=== PATIENT | male | born 1990 | race Hispanic/Latino ===

== ENCOUNTER 2017-08-14 03:31 | Emergency (ER) | payer SELFPAY ==
[2017-08-14] MEDS ORDERED: Ondansetron HCl/PF 4 MG/2 ML Vial ONE (03:40)
[2017-08-14 04:13] LABS: #Basophils 0.1 thou/uL (0.0-0.2); #Eosinphils 0.4 thou/uL (0.0-0.7); #Lymphocytes 3.7 thou/uL (1.20-3.40); #Neutrophils 10.7 thou/uL (1.40-6.50); %Basophils 0.7 % (0.0-1.0); %Eosinophils 2.6 % (0.0-10.0); %Lymphocytes 23.2 % (21.0-51.0); %Monocytes 6.1 % (0.0-10.0); %Neutrophils 67.4 % (42.0-75.0); Mean Corpuscular HGB CONC 33.3 g/dL (32.0-36.0); Mean Corpuscular Hemoglobin 27.6 pg (27.0-31.0); Mean Platelet Volume 7.6 fL (7.4-10.4); Platelet Count 351 thou/uL (130-400); RBC Distribution Width 12.5 % (11.5-14.5); Red Blood Cell (RBC) Count 5.42 mill/uL (4.70-6.10); White Blood Cell (WBC) Count 15.9 thou/uL (4.8-10.8)
[2017-08-14 04:34] LABS: ALT (SGPT) 30 U/L (8-55); AST (SGOT) 18 U/L (5-34); Albumin 4.5 g/dL (3.5-5.0); Alkaline Phosphatase 78 U/L (40-150); Anion Gap 16 mmol/L (10-20); BUN (Urea Nitrogen) 12 mg/dL (8.9-20.6); Bilirubin, Total 0.2 mg/dL (0.2-1.2); Calc. Creatinine Clearance 0 mL/min (70-130); Calcium 9.6 mg/dL (7.8-10.44); Carbon Dioxide 23 mmol/L (22-29); Chloride 105 mmol/L (98-107); Estimated GFR-MDRD Greater than 90; Globulin 3.4 g/dL (2.4-3.5); Glucose 124 mg/dL (70-105); Lipase 19 U/L (8-78); Potassium 3.8 mmol/L (3.5-5.1); Protein, Total 7.9 g/dL (6.0-8.3); Sodium 140 mmol/L (136-145)
[2017-08-14 04:44] LABS: Anion Gap 15 mmol/L (10-20); BUN (Urea Nitrogen) 11 mg/dL (8.9-20.6); Calc. Creatinine Clearance 0 mL/min (70-130); Calcium 9.7 mg/dL (7.8-10.44); Carbon Dioxide 24 mmol/L (22-29); Chloride 105 mmol/L (98-107); Estimated GFR-MDRD Greater than 90; Glucose 122 mg/dL (70-105); Potassium 3.7 mmol/L (3.5-5.1); Sodium 140 mmol/L (136-145)
[2017-08-14] MEDS ORDERED: Pantoprazole 40 MG VIAL ONE (04:55)
[2017-08-14] MEDS ORDERED: Morphine 4 MG/ML VIAL ONE (04:55)
--- NOTE | 2017-08-14 07:52 | ULT ---
PRELIMINARY REPORT/[facility]/EMERGENCY AFTER HOURS PROCEDURE: EXAM: US Abdomen Limited, Right Upper Quadrant CLINICAL HISTORY: 27 years old, male; Pain; Other: Upper abd TECHNIQUE: Real-time ultrasound of the right upper quadrant with image documentation. COMPARISON: No relevant prior studies available. FINDINGS: Liver: The liver is heterogeneous in echogenicity, probably from fatty infiltration. No intrahepatic bile duct dilation. Gallbladder: There are gallstones with possible sludge. No gallbladder wall thickening. Based on ultr asound technologist report, there is positive Madrigal's sign. Common bile duct: The common bile duct measures 0.55 cm. No stones. No dilation. Pancreas: Unremarkable as visualized. Right kidney: The right kidney measures 12.1 x 4.7 x 5cm. There is 1.3 x 1 cm right renal cyst. There are 2 subcentimeter right renal stones measuring up to 0.8 cm No hydronephrosis. IMPRESSION: Gallbladder stones with possible sludge and positive sonographic Madrigal sign concerning for cholecyst itis. Subcentimeter right renal stones. No hydronephrosis. Thank you for allowing us to participate in the care of your patient. Dictated and Authenticated by: Chelsie Alanis DO 08/14/2017 5:51 AM Central Time ([place] & [place]) FINAL INTERPRETATION RIGHT UPPER QUADRANT ULTRASOUND: 08/14/2017 HISTORY: Right upper quadrant pain. COMPARISON: None. FINDINGS: I agree with the preliminary [facility] report, dictated by Dr. Chelsie Alanis. The imaged pancreas is unremarkable. Increased echogenicity of the hepatic parenchyma noted, which m ay signify steatosis. There is cholelithiasis with gallbladder sludge. The adult remedial education instructor reports a po sitive Madrigal sign. No gallbladder wall thickening or pericholecystic fluid. The common bile duct measures 5-6 mm, upper limits of normal. The right kidney measures 12 cm in craniocaudal dimension and demonstrates a probable 1 x 1.3 cm cyst . There are echogenic foci within the right kidney, measuring up to 8 mm, suggesting nonobstructing stones. IMPRESSION: 1. Cholelithiasis with positive Madrigal sign, suspicious for acute cholecystitis in the proper clinic al setting. 2. Findings suggesting nonobstructing right renal calculi. POS: [facility]
== END 2017-08-14 06:05 | disposition home or self-care (01) ==
LOC: ERS 03:31
DX: K29.20 Alcoholic gastritis without bleeding (principal); K80.80 Other cholelithiasis without obstruction
CPT/HCPCS: 76705; 80053; 82150; 83690; 85025; 96361; 96374; 96375; C9113; J2270; J2405

== ENCOUNTER 2021-03-17 15:03 | Inpatient (IN) | payer SELFPAY ==
[~2021-03-17 15:03] MED LIST: Iopamidol-370 76% 500 ML 1 ML ONE
[2021-03-17 16:54] LABS: #Basophils 0.1 thou/uL (0.0-0.2); #Lymphocytes 1.8 thou/uL (1.20-3.40); #Monocytes 0.9 thou/uL (0.11-0.59); #Neutrophils 11.1 thou/uL (1.40-6.50); %Basophils 0.4 % (0.0-1.0); %Eosinophils 0.1 % (0.0-10.0); %Monocytes 6.6 % (0.0-10.0); %Neutrophils 79.8 % (42.0-75.0); Hemoglobin 16.3 g/dL (14.0-18.0); Mean Corpuscular HGB CONC 33.3 g/dL (32.0-36.0); Mean Corpuscular Hemoglobin 27.2 pg (27.0-31.0); Mean Corpuscular Volume 81.7 fL (78.0-98.0); Mean Platelet Volume 8.4 fL (7.4-10.4); Platelet Count 324 thou/uL (130-400); RBC Distribution Width 13.4 % (11.5-14.5); Red Blood Cell (RBC) Count 5.99 mill/uL (4.70-6.10); White Blood Cell (WBC) Count 13.9 thou/uL (4.8-10.8)
[2021-03-17] MEDS ORDERED: Ondansetron PF 4 MG/2 ML Vial ONE (16:57)
[2021-03-17] MEDS ORDERED: Morphine 4 MG/ML VIAL ONE (16:57)
[2021-03-17 17:16] LABS: ALT (SGPT) 21 U/L (8-55); AST (SGOT) 16 U/L (5-34); Albumin 5.1 g/dL (3.5-5.0); Alkaline Phosphatase 93 U/L (40-110); Anion Gap 16 mmol/L (10-20); BUN (Urea Nitrogen) 14 mg/dL (8.9-20.6); Bilirubin, Total 0.6 mg/dL (0.2-1.2); Calc. Creatinine Clearance 0 mL/min (70-130); Calcium 9.8 mg/dL (7.8-10.44); Carbon Dioxide 27 mmol/L (22-29); Chloride 102 mmol/L (98-107); Globulin 3.8 g/dL (2.4-3.5); Glucose 111 mg/dL (70-105); Lipase 8 U/L (8-78); Potassium 3.6 mmol/L (3.5-5.1); Protein, Total 8.9 g/dL (6.0-8.3); Sodium 141 mmol/L (136-145)
[2021-03-17 17:57] LABS: Bilirubin Negative (Negative); Blood, Urine Negative (Negative); Clarity Turbid (Clear); Glucose, Urine (Dipstick) Normal (Negative); Ketone, Urine Negative (Negative); Leukocyte Negative Leu/uL (Negative); Nitrite Negative (Negative); Protein, Urine (Dipstick) Negative (Neg-Trace); Specific Gravity, Urine 1.019 (1.002-1.036); Urobilinogen Normal mg/dL (Less than 2); pH, Urine 6.5 (5.0-9.0)
[2021-03-17] MEDS ORDERED: Piperacillin/Tazobactam 4.5 GM VIAL ONE (18:48)
[2021-03-17 20:06] LABS: Lactic Acid 2.1 mmol/L (0.5-2.2)
[2021-03-17] MEDS ORDERED: Acetaminophen 650 MG Suppository PR PRN (20:09)
[2021-03-17] MEDS ORDERED: Ondansetron PF 4 MG/2 ML Vial IVP PRN (20:09)
[2021-03-17] MEDS ORDERED: Ondansetron ODT 4 MG TAB PO PRN (20:09)
[2021-03-17] MEDS ORDERED: Sodium Chloride 0.9% 1,000 ML IV SCH (20:15)
[2021-03-17] MEDS ORDERED: Morphine 2 MG/ML VIAL SLOW IVP PRN (20:57)
[2021-03-17] MEDS ORDERED: Morphine 4 MG/ML VIAL SLOW IVP PRN (20:57)
[2021-03-17] MEDS ORDERED: Sodium Chloride 0.9% 500 ML IV SCH (21:00)
[2021-03-17 21:18] VITALS: BMI 30.9
[2021-03-17] MEDS: Sodium Chloride 0.9% 1,000 ML IV SCH (21:42)
[2021-03-17] MEDS ORDERED: Chloraseptic Spray 180 ml Bottle PO PRN (22:15)
[2021-03-17] MEDS: Piperacillin/Tazobactam 3.375 GM in Sodium Chloride 0.9% 100 ML IVPB SCH (22:35)
[2021-03-18] MEDS ORDERED: Morphine 4 MG/ML VIAL SLOW IVP PRN (04:43)
[2021-03-18] MEDS: Sodium Chloride 0.9% 1,000 ML IV SCH ×2 (04:47→18:53)
[2021-03-18] MEDS: Piperacillin/Tazobactam 3.375 GM in Sodium Chloride 0.9% 100 ML IVPB SCH ×3 (05:43→21:33)
[2021-03-18 05:52] LABS: SARS-CoV-2 NAA Rapid Test Not Detected (NotDetected)
[2021-03-18 06:28] LABS: #Monocytes 0.9 thou/uL (0.11-0.59); #Neutrophils 8.7 thou/uL (1.40-6.50); %Basophils 0.4 % (0.0-1.0); %Eosinophils 0.3 % (0.0-10.0); %Lymphocytes 17.2 % (21.0-51.0); %Monocytes 7.6 % (0.0-10.0); %Neutrophils 74.5 % (42.0-75.0); Mean Corpuscular HGB CONC 33.2 g/dL (32.0-36.0); Mean Corpuscular Hemoglobin 27.5 pg (27.0-31.0); Mean Corpuscular Volume 82.7 fL (78.0-98.0); Mean Platelet Volume 8.3 fL (7.4-10.4); Platelet Count 271 thou/uL (130-400); RBC Distribution Width 13.4 % (11.5-14.5); White Blood Cell (WBC) Count 11.7 thou/uL (4.8-10.8)
[2021-03-18 06:41] LABS: Anion Gap 14 mmol/L (10-20); BUN (Urea Nitrogen) 11 mg/dL (8.9-20.6); Calc. Creatinine Clearance 163 mL/min (70-130); Calcium 8.8 mg/dL (7.8-10.44); Carbon Dioxide 23 mmol/L (22-29); Chloride 108 mmol/L (98-107); Glucose 117 mg/dL (70-105); Potassium 4.1 mmol/L (3.5-5.1); Sodium 141 mmol/L (136-145)
[2021-03-18] MEDS ORDERED: Fleet Enema 133 ML BOT PR SCH (08:00)
[2021-03-18] MEDS ORDERED: Dexmedetomidine 200 MCG/2 ML VIAL ONE (09:57)
[2021-03-18] MEDS ORDERED: Succinylcholine 200 MG/10 ml SYRINGE FS ONE ×2 (10:11→13:54)
[2021-03-18] MEDS ORDERED: PROPOFOL 200 MG/20 ML VIAL ONE ×2 (10:11→13:54)
[2021-03-18] MEDS ORDERED: Fentanyl 250 MCG/5 ML VIAL ONE (13:11)
[2021-03-18] MEDS ORDERED: Lidocaine 1% w/Epinephrine 1:100K 20 ML VIAL ONE (13:30)
[2021-03-18] MEDS ORDERED: Bupivacaine PF 0.5% 30 ML VIAL ONE (13:30)
[2021-03-18] MEDS ORDERED: Glycopyrrolate 0.2 MG/ML 5 ML SYRINGE ONE (13:54)
[2021-03-18] MEDS ORDERED: Rocuronium Bromide 10 MG/ML (10ML VIAL) ONE (13:54)
[2021-03-18] MEDS ORDERED: Dexamethasone 20 MG/5 ML VIAL ONE (13:54)
[2021-03-18] MEDS ORDERED: Ondansetron PF 4 MG/2 ML Vial ONE (13:54)
[2021-03-18] MEDS ORDERED: Lidocaine 1% PF 5 ML VIAL ONE (13:54)
[2021-03-18] MEDS ORDERED: Labetalol HCl 100 MG/20 ML VIAL ONE (13:54)
[2021-03-18] MEDS ORDERED: HYDROmorphone 0.5 MG/0.5 ML SYRINGE ONE (15:06)
[2021-03-18] MEDS ORDERED: Promethazine HCl 25 MG/ML VIAL IM PRN ×3 (15:39→15:51)
[2021-03-18] MEDS ORDERED: hydrALAZINE 20 MG/ML VIAL SLOW IVP PRN (15:39)
[2021-03-18] MEDS ORDERED: hydrALAZINE 20 MG/ML VIAL ONE (15:39)
[2021-03-18] MEDS ORDERED: Ondansetron PF 4 MG/2 ML Vial IVP PRN ×2 (15:39→15:51)
[2021-03-18] MEDS ORDERED: Fentanyl 100 MCG/2 ML VIAL ONE (15:41)
[2021-03-18] MEDS ORDERED: Promethazine HCl 25 MG/ML VIAL IVPB PRN (15:50)
[2021-03-18] MEDS ORDERED: Ondansetron HCl/PF 4 MG/2 ML Vial IVP PRN (15:50)
[2021-03-18] MEDS ORDERED: Meperidine HCl/PF 25 MG/ML VIAL SLOW IVP PRN (15:50)
[2021-03-18] MEDS ORDERED: Morphine Sulfate 2 MG/ML SYRINGE SLOW IVP PRN (15:50)
[2021-03-18] MEDS ORDERED: PACU-Morphine 4MG/ML VIAL SLOW IVP PRN (15:50)
[2021-03-18] MEDS ORDERED: Ketorolac Tromethamine 30 MG/ML VIAL IVP PRN (15:50)
[2021-03-18] MEDS ORDERED: Naloxone HCl 0.4 mg/ml Vial IV PRN (15:51)
[2021-03-18] MEDS ORDERED: Zolpidem Tartrate 5 MG TAB PO PRN (15:51)
[2021-03-18] MEDS ORDERED: diphenhydrAMINE 50 MG/ML VIAL IVP PRN (15:51)
[2021-03-18] MEDS ORDERED: diphenhydrAMINE 50 MG/ML VIAL IM PRN (15:51)
[2021-03-18] MEDS ORDERED: diphenhydrAMINE 25 MG CAP PO PRN (15:51)
[2021-03-18] MEDS ORDERED: Communication Order-Pharmacy FS SCH (16:00)
[2021-03-18] MEDS ORDERED: HYDROmorphone 2 MG/ML VIAL ONE (16:03)
[2021-03-18] MEDS ORDERED: Ketorolac Tromethamine 30 MG/ML VIAL ONE (16:17)
[2021-03-18] MEDS: Ketorolac Tromethamine 30 MG/ML VIAL IVP SCH ×2 (17:29→23:59)
[2021-03-18] MEDS: cefOXitin Sodium/Dextrose,Iso 2 GM in Premix Bag 1 BAG IVPB SCH (19:37)
[2021-03-18] MEDS: Famotidine/PF 20 mg/2ml Vial SLOW IVP SCH (21:33)
[2021-03-18] MEDS: Famotidine 20 MG TAB PO SCH (21:57)
[2021-03-19] MEDS: Sodium Chloride 0.9% 1,000 ML IV SCH ×3 (01:10→16:52)
[2021-03-19] MEDS: cefOXitin Sodium/Dextrose,Iso 2 GM in Premix Bag 1 BAG IVPB SCH (01:10)
[2021-03-19] MEDS: Ketorolac Tromethamine 30 MG/ML VIAL IVP SCH ×4 (06:10→23:15)
[2021-03-19] MEDS: Piperacillin/Tazobactam 3.375 GM in Sodium Chloride 0.9% 100 ML IVPB SCH ×3 (06:11→21:13)
[2021-03-19 06:22] LABS: Anion Gap 13 mmol/L (10-20); BUN (Urea Nitrogen) 15 mg/dL (8.9-20.6); Calc. Creatinine Clearance 148 mL/min (70-130); Calcium 8.6 mg/dL (7.8-10.44); Carbon Dioxide 25 mmol/L (22-29); Chloride 105 mmol/L (98-107); Glucose 115 mg/dL (70-105); Potassium 4.3 mmol/L (3.5-5.1); Sodium 139 mmol/L (136-145)
[2021-03-19 06:26] LABS: Band 1 % (5-11); Hypochromia SLIGHT = 6-15 cells (100X) (0-5/hpf); Lymphocytes 22 % (21-51); MDiff Complete? YES; Mean Corpuscular HGB CONC 31.5 g/dL (32.0-36.0); Mean Corpuscular Hemoglobin 26.5 pg (27.0-31.0); Mean Corpuscular Volume 83.9 fL (78.0-98.0); Mean Platelet Volume 7.9 fL (7.4-10.4); Monocytes 17 % (0-10); Neutrophil 60 % (42-75); Platelet Count 278 thou/uL (130-400); Platelet Morphology Comment Appears Adequate; RBC Distribution Width 13.4 % (11.5-14.5); Red Blood Cell (RBC) Count 4.55 mill/uL (4.70-6.10); White Blood Cell (WBC) Count 12.1 thou/uL (4.8-10.8)
[2021-03-19] MEDS: HYDROmorphone 10 mg/100 ml CADD IVPB PRN (07:42)
[2021-03-19] MEDS: Famotidine/PF 20 mg/2ml Vial SLOW IVP SCH ×2 (09:06→21:13)
[2021-03-19] MEDS: Famotidine 20 MG TAB PO SCH ×2 (09:07→21:22)
[2021-03-19] MEDS: Enoxaparin Sodium 40 MG/0.4 ML SYRINGE SC SCH (09:11)
[2021-03-20] MEDS: HYDROmorphone 10 mg/100 ml CADD IVPB PRN (03:32)
[2021-03-20] MEDS: Sodium Chloride 0.9% 1,000 ML IV SCH ×3 (03:33→18:32)
[2021-03-20] MEDS: Ketorolac Tromethamine 30 MG/ML VIAL IVP SCH ×4 (05:30→23:42)
[2021-03-20] MEDS: Piperacillin/Tazobactam 3.375 GM in Sodium Chloride 0.9% 100 ML IVPB SCH (05:30)
[2021-03-20] MEDS: Famotidine/PF 20 mg/2ml Vial SLOW IVP SCH ×2 (08:54→21:02)
[2021-03-20] MEDS: Famotidine 20 MG TAB PO SCH ×2 (08:55→21:10)
[2021-03-20] MEDS ORDERED: FLU VACC QS2021-22(6MOS UP)/PF 60 MCG/0.5 ML SYRINGE IM ONE (09:00)
[2021-03-20] MEDS ORDERED: Enoxaparin Sodium 40 MG/0.4 ML SYRINGE ONE (11:16)
[2021-03-20] MEDS: Enoxaparin Sodium 40 MG/0.4 ML SYRINGE SC SCH (13:10)
[2021-03-21] MEDS: Sodium Chloride 0.9% 1,000 ML IV SCH ×2 (03:08→11:50)
[2021-03-21 06:42] LABS: #Basophils 0.1 thou/uL (0.0-0.2); #Eosinphils 0.4 thou/uL (0.0-0.7); #Lymphocytes 2.1 thou/uL (1.20-3.40); #Monocytes 0.8 thou/uL (0.11-0.59); #Neutrophils 4.8 thou/uL (1.40-6.50); %Basophils 0.7 % (0.0-1.0); %Eosinophils 4.7 % (0.0-10.0); %Lymphocytes 25.2 % (21.0-51.0); %Monocytes 9.9 % (0.0-10.0); %Neutrophils 59.5 % (42.0-75.0); Hemoglobin 6.5 g/dL (14.0-18.0); Mean Corpuscular Hemoglobin 28.3 pg (27.0-31.0); Mean Corpuscular Volume 83.4 fL (78.0-98.0); Mean Platelet Volume 8.2 fL (7.4-10.4); Platelet Count 188 thou/uL (130-400); RBC Distribution Width 13.3 % (11.5-14.5); Red Blood Cell (RBC) Count 2.29 mill/uL (4.70-6.10); White Blood Cell (WBC) Count 8.1 thou/uL (4.8-10.8)
[2021-03-21 07:08] LABS: ALT (SGPT) 24 U/L (8-55); AST (SGOT) 15 U/L (5-34); Albumin 3.2 g/dL (3.5-5.0); Alkaline Phosphatase 44 U/L (40-110); Anion Gap 12 mmol/L (10-20); BUN (Urea Nitrogen) 9 mg/dL (8.9-20.6); Bilirubin, Total 0.6 mg/dL (0.2-1.2); Calc. Creatinine Clearance 213 mL/min (70-130); Carbon Dioxide 25 mmol/L (22-29); Chloride 104 mmol/L (98-107); Globulin 1.9 g/dL (2.4-3.5); Glucose 91 mg/dL (70-105); Magnesium 1.9 mg/dL (1.6-2.6); Potassium 3.7 mmol/L (3.5-5.1); Protein, Total 5.1 g/dL (6.0-8.3); Sodium 137 mmol/L (136-145)
[2021-03-21 08:06] LABS: Hemoglobin 6.9 g/dL (14.0-18.0)
[2021-03-21] MEDS: Famotidine 20 MG TAB PO SCH ×2 (08:14→22:41)
[2021-03-21] MEDS: Polyethylene Glycol 3350 17 GM Packet PO SCH (08:15)
[2021-03-21] MEDS: Famotidine/PF 20 mg/2ml Vial SLOW IVP SCH ×2 (08:15→20:43)
[2021-03-21 08:18] LABS: INR-International Normal Ratio 1.2; Prothrombin Time 15.8 sec (12.0-14.7)
[2021-03-21 08:19] LABS: PTT 38.2 sec (22.9-36.1)
[2021-03-21] MEDS: Ketorolac Tromethamine 30 MG/ML VIAL IVP SCH (08:22)
[2021-03-21] MEDS: HYDROmorphone 10 mg/100 ml CADD IVPB PRN (09:21)
[2021-03-21] MEDS: Acetaminophen 325 MG TAB PO PRN (13:43)
[2021-03-21 17:02] LABS: Hemoglobin 8.3 g/dL (14.0-18.0)
[2021-03-22 06:15] LABS: #Basophils 0.1 thou/uL (0.0-0.2); #Eosinphils 0.6 thou/uL (0.0-0.7); #Lymphocytes 2.4 thou/uL (1.20-3.40); #Monocytes 1.1 thou/uL (0.11-0.59); %Basophils 0.6 % (0.0-1.0); %Eosinophils 5.8 % (0.0-10.0); %Lymphocytes 23.7 % (21.0-51.0); %Monocytes 10.5 % (0.0-10.0); %Neutrophils 59.4 % (42.0-75.0); Hemoglobin 7.5 g/dL (14.0-18.0); Mean Corpuscular HGB CONC 34.8 g/dL (32.0-36.0); Mean Corpuscular Hemoglobin 29.2 pg (27.0-31.0); Mean Corpuscular Volume 83.9 fL (78.0-98.0); Mean Platelet Volume 7.9 fL (7.4-10.4); Platelet Count 225 thou/uL (130-400); RBC Distribution Width 14.6 % (11.5-14.5); Red Blood Cell (RBC) Count 2.56 mill/uL (4.70-6.10); White Blood Cell (WBC) Count 10.2 thou/uL (4.8-10.8)
[2021-03-22] MEDS: HYDROmorphone 10 mg/100 ml CADD IVPB PRN (06:32)
[2021-03-22 06:39] LABS: ALT (SGPT) 25 U/L (8-55); AST (SGOT) 18 U/L (5-34); Albumin 3.5 g/dL (3.5-5.0); Alkaline Phosphatase 46 U/L (40-110); Anion Gap 10 mmol/L (10-20); BUN (Urea Nitrogen) 10 mg/dL (8.9-20.6); Bilirubin, Total 0.8 mg/dL (0.2-1.2); Calc. Creatinine Clearance 199 mL/min (70-130); Calcium 8.5 mg/dL (7.8-10.44); Carbon Dioxide 26 mmol/L (22-29); Chloride 104 mmol/L (98-107); Globulin 2.1 g/dL (2.4-3.5); Glucose 91 mg/dL (70-105); Magnesium 2.1 mg/dL (1.6-2.6); Phosphorus 3.4 mg/dL (2.3-4.7); Potassium 3.9 mmol/L (3.5-5.1); Protein, Total 5.6 g/dL (6.0-8.3); Sodium 136 mmol/L (136-145)
[2021-03-22] MEDS: Famotidine 20 MG TAB PO SCH ×2 (08:42→20:15)
[2021-03-22] MEDS: Polyethylene Glycol 3350 17 GM Packet PO SCH (08:43)
[2021-03-22] MEDS: Famotidine/PF 20 mg/2ml Vial SLOW IVP SCH ×2 (08:43→20:15)
[2021-03-22 13:28] LABS: Hemoglobin 8.4 g/dL (14.0-18.0)
[2021-03-23 06:47] LABS: #Eosinphils 0.3 thou/uL (0.0-0.7); #Lymphocytes 1.2 thou/uL (1.20-3.40); #Monocytes 0.9 thou/uL (0.11-0.59); #Neutrophils 7.1 thou/uL (1.40-6.50); %Basophils 0.2 % (0.0-1.0); %Eosinophils 3.1 % (0.0-10.0); %Lymphocytes 12.7 % (21.0-51.0); %Monocytes 9.7 % (0.0-10.0); %Neutrophils 74.3 % (42.0-75.0); Hemoglobin 8.5 g/dL (14.0-18.0); Mean Corpuscular HGB CONC 33.5 g/dL (32.0-36.0); Mean Corpuscular Hemoglobin 28.1 pg (27.0-31.0); Mean Platelet Volume 7.6 fL (7.4-10.4); Platelet Count 300 thou/uL (130-400); RBC Distribution Width 14.9 % (11.5-14.5); Red Blood Cell (RBC) Count 3.03 mill/uL (4.70-6.10); White Blood Cell (WBC) Count 9.5 thou/uL (4.8-10.8)
[2021-03-23 07:09] LABS: ALT (SGPT) 54 U/L (8-55); AST (SGOT) 43 U/L (5-34); Albumin 3.9 g/dL (3.5-5.0); Alkaline Phosphatase 60 U/L (40-110); Anion Gap 11 mmol/L (10-20); BUN (Urea Nitrogen) 8 mg/dL (8.9-20.6); Bilirubin, Total 1.2 mg/dL (0.2-1.2); Calc. Creatinine Clearance 182 mL/min (70-130); Carbon Dioxide 26 mmol/L (22-29); Chloride 103 mmol/L (98-107); Globulin 2.5 g/dL (2.4-3.5); Glucose 98 mg/dL (70-105); Magnesium 2.2 mg/dL (1.6-2.6); Phosphorus 3.9 mg/dL (2.3-4.7); Potassium 4.2 mmol/L (3.5-5.1); Protein, Total 6.4 g/dL (6.0-8.3); Sodium 136 mmol/L (136-145)
[2021-03-23] MEDS: Famotidine 20 MG TAB PO SCH ×2 (09:07→20:25)
[2021-03-23] MEDS: Famotidine/PF 20 mg/2ml Vial SLOW IVP SCH ×2 (09:07→20:26)
[2021-03-23] MEDS: Polyethylene Glycol 3350 17 GM Packet PO SCH (09:07)
[2021-03-23] MEDS ORDERED: Fentanyl 100 MCG/2 ML VIAL SLOW IVP PRN (12:18)
[2021-03-23] MEDS ORDERED: HYDROcodone/Acetaminophen 10/325 mg Tablet PO PRN ×2 (12:19)
[2021-03-23] MEDS ORDERED: traMADol HCl 50 MG TAB PO PRN (12:19)
[2021-03-23] MEDS: Acetaminophen 325 MG TAB PO PRN (20:30)
[2021-03-24 05:33] LABS: #Basophils 0.1 thou/uL (0.0-0.2); #Eosinphils 0.3 thou/uL (0.0-0.7); #Lymphocytes 2.2 thou/uL (1.20-3.40); #Monocytes 1.1 thou/uL (0.11-0.59); #Neutrophils 6.2 thou/uL (1.40-6.50); %Basophils 0.6 % (0.0-1.0); %Eosinophils 3.3 % (0.0-10.0); %Lymphocytes 22.7 % (21.0-51.0); %Monocytes 10.9 % (0.0-10.0); %Neutrophils 62.5 % (42.0-75.0); Hemoglobin 9.4 g/dL (14.0-18.0); Mean Corpuscular HGB CONC 34.2 g/dL (32.0-36.0); Mean Corpuscular Volume 84.8 fL (78.0-98.0); Mean Platelet Volume 7.7 fL (7.4-10.4); Platelet Count 309 thou/uL (130-400); RBC Distribution Width 15.1 % (11.5-14.5); Red Blood Cell (RBC) Count 3.25 mill/uL (4.70-6.10); White Blood Cell (WBC) Count 9.9 thou/uL (4.8-10.8)
[2021-03-24 05:52] LABS: ALT (SGPT) 41 U/L (8-55); AST (SGOT) 22 U/L (5-34); Albumin 3.9 g/dL (3.5-5.0); Alkaline Phosphatase 59 U/L (40-110); Anion Gap 13 mmol/L (10-20); BUN (Urea Nitrogen) 11 mg/dL (8.9-20.6); Bilirubin, Total 1.6 mg/dL (0.2-1.2); Calc. Creatinine Clearance 167 mL/min (70-130); Calcium 8.9 mg/dL (7.8-10.44); Carbon Dioxide 24 mmol/L (22-29); Chloride 104 mmol/L (98-107); Globulin 2.6 g/dL (2.4-3.5); Glucose 95 mg/dL (70-105); Magnesium 2.4 mg/dL (1.6-2.6); Phosphorus 4.6 mg/dL (2.3-4.7); Potassium 3.9 mmol/L (3.5-5.1); Protein, Total 6.5 g/dL (6.0-8.3); Sodium 137 mmol/L (136-145)
[2021-03-24] MEDS: Famotidine/PF 20 mg/2ml Vial SLOW IVP SCH (09:21)
[2021-03-24] MEDS: Polyethylene Glycol 3350 17 GM Packet PO SCH (09:23)
[2021-03-24] MEDS: Famotidine 20 MG TAB PO SCH (09:23)
[2021-03-24 16:32] VITALS: BP 131/81; TEMP 98.7
== END 2021-03-24 19:20 | disposition home or self-care (01) | DRG 330 ==
LOC: ERS 15:03 → T4-B 19:23 → SJJU 03-18 17:39
PROVIDERS: ADMIT Student in an Organized Health Care Education/Training Program; ATTEND Family Medicine
PROC: 0D1N0Z4 Bypass Sigmoid Colon to Cutaneous, Open Approach (ICD-10-PCS; principal; 2021-03-18)
PROC: 0DBN0ZZ Excision of Sigmoid Colon, Open Approach (ICD-10-PCS; 2021-03-18)
PROC: 0DJD8ZZ Inspection of Lower Intestinal Tract, Via Natural or Artificial Opening Endoscopic (ICD-10-PCS; 2021-03-18)
PROC: 30233N1 Transfusion of Nonautologous Red Blood Cells into Peripheral Vein, Percutaneous Approach (ICD-10-PCS; 2021-03-21)
DX: C18.7 Malignant neoplasm of sigmoid colon (principal); E87.2 Acidosis; D62 Acute posthemorrhagic anemia; Z20.822 Contact with and (suspected) exposure to COVID-19; I10 Essential (primary) hypertension; D72.829 Elevated white blood cell count, unspecified; K52.9 Noninfective gastroenteritis and colitis, unspecified; K63.89 Other specified diseases of intestine; Z87.891 Personal history of nicotine dependence; Z79.899 Other long term (current) drug therapy
CPT/HCPCS: 36415; 36416; 36430; 74177; 80048; 80053; 81003; 82378; 83605; 83690; 83735; 84100; 84484; 85025; 85610; 85730; 86850; 86900; 86901; 87040; 88309; 93005; 96365; 96366; 96375; J0360; J0694; J1100; J1170; J1650; J1885; J2270; J2405; J2543; J2704; J3010; J3490; J7030; J7050; P9016; Q9967; S0020; S0028; U0002; U0003; U0005

== ENCOUNTER 2021-03-25 16:38 | Emergency (ER) | payer SELFPAY ==
[2021-03-25 18:05] LABS: #Basophils 0.1 thou/uL (0.0-0.2); #Eosinphils 0.3 thou/uL (0.0-0.7); #Lymphocytes 1.8 thou/uL (1.20-3.40); #Monocytes 1.1 thou/uL (0.11-0.59); #Neutrophils 9.5 thou/uL (1.40-6.50); %Basophils 0.4 % (0.0-1.0); %Eosinophils 2.3 % (0.0-10.0); %Monocytes 8.8 % (0.0-10.0); %Neutrophils 74.6 % (42.0-75.0); Hemoglobin 10.6 g/dL (14.0-18.0); Mean Corpuscular HGB CONC 33.7 g/dL (32.0-36.0); Mean Corpuscular Hemoglobin 28.4 pg (27.0-31.0); Mean Corpuscular Volume 84.1 fL (78.0-98.0); Mean Platelet Volume 7.7 fL (7.4-10.4); Platelet Count 431 thou/uL (130-400); RBC Distribution Width 14.9 % (11.5-14.5); Red Blood Cell (RBC) Count 3.74 mill/uL (4.70-6.10); White Blood Cell (WBC) Count 12.7 thou/uL (4.8-10.8)
[2021-03-25 18:25] LABS: ALT (SGPT) 34 U/L (8-55); AST (SGOT) 14 U/L (5-34); Albumin 4.4 g/dL (3.5-5.0); Alkaline Phosphatase 67 U/L (40-110); Anion Gap 12 mmol/L (10-20); BUN (Urea Nitrogen) 13 mg/dL (8.9-20.6); Bilirubin, Total 1.4 mg/dL (0.2-1.2); Calc. Creatinine Clearance 0 mL/min (70-130); Calcium 9.7 mg/dL (7.8-10.44); Carbon Dioxide 25 mmol/L (22-29); Chloride 106 mmol/L (98-107); Globulin 3.1 g/dL (2.4-3.5); Glucose 109 mg/dL (70-105); Potassium 4.1 mmol/L (3.5-5.1); Protein, Total 7.5 g/dL (6.0-8.3); Sodium 139 mmol/L (136-145)
== END 2021-03-25 19:01 | disposition home or self-care (01) ==
LOC: ERS 16:38
DX: E80.7 Disorder of bilirubin metabolism, unspecified (principal); D72.829 Elevated white blood cell count, unspecified; L81.9 Disorder of pigmentation, unspecified; R10.812 Left upper quadrant abdominal tenderness; I10 Essential (primary) hypertension; Z87.891 Personal history of nicotine dependence; Z79.899 Other long term (current) drug therapy; Z93.3 Colostomy status
CPT/HCPCS: 36415; 80053; 82248; 85025; 99283

== ENCOUNTER 2021-04-09 10:18 | Day surgery (SDC) | payer OTHER ==
[2021-04-08 11:13] VITALS: BMI 29.2
[2021-04-09] MEDS ORDERED: Lidocaine 1% w/Epinephrine 1:100K 20 ML VIAL ONE (10:38)
[2021-04-09] MEDS ORDERED: Bupivacaine 0.25% HCL 30 ML VIAL ONE (10:38)
[2021-04-09] MEDS ORDERED: Fentanyl 100 MCG/2 ML VIAL ONE ×2 (10:46→12:52)
[2021-04-09] MEDS ORDERED: Midazolam HCl 2 mg/2 ml Vial ONE (10:46)
[2021-04-09] MEDS ORDERED: ceFAZolin 2 GM/DEX 5% 100 ML BAG ONE (11:00)
[2021-04-09] MEDS ORDERED: Dexamethasone 20 MG/5 ML VIAL ONE (11:18)
[2021-04-09] MEDS ORDERED: Lidocaine 1% PF 5 ML VIAL ONE (11:18)
[2021-04-09] MEDS ORDERED: PROPOFOL 200 MG/20 ML VIAL ONE (11:18)
[2021-04-09] MEDS ORDERED: Ondansetron PF 4 MG/2 ML Vial ONE (11:18)
[2021-04-09] MEDS ORDERED: Ketorolac Tromethamine 30 MG/ML VIAL ONE (11:18)
== END 2021-04-09 14:15 | disposition home or self-care (01) ==
LOC: SDC 10:18
PROVIDERS: ATTEND Surgery
PROC: 02HV33Z Insertion of Infusion Device into Superior Vena Cava, Percutaneous Approach (ICD-10-PCS; principal; 2021-04-09)
DX: C18.9 Malignant neoplasm of colon, unspecified (principal); Z98.890 Other specified postprocedural states
CPT/HCPCS: 71045; C1788; J1642; J2250; J3010; S0020

== ENCOUNTER 2021-09-16 09:09 | Outpatient (CLI) | payer OTHER | END 2021-09-16 09:10 | disposition home or self-care (01) | LOC: CT 09:09 | PROVIDERS: ATTEND Internal Medicine Hematology & Oncology | DX: C18.9 Malignant neoplasm of colon, unspecified (principal); D50.0 Iron deficiency anemia secondary to blood loss (chronic); N28.1 Cyst of kidney, acquired; Z90.49 Acquired absence of other specified parts of digestive tract | CPT/HCPCS: 71260; 74177 ==

== ENCOUNTER 2022-01-19 09:08 | Outpatient (CLI) | payer OTHER ==
[2022-01-19] MEDS ORDERED: Iopamidol 370 76% 100 ML VIAL ONE (14:02)
== END 2022-01-19 09:09 | disposition home or self-care (01) ==
LOC: CT 09:08
PROVIDERS: ATTEND Internal Medicine Hematology & Oncology
DX: C18.9 Malignant neoplasm of colon, unspecified (principal); R91.8 Other nonspecific abnormal finding of lung field; K43.5 Parastomal hernia without obstruction or gangrene; Z93.3 Colostomy status
CPT/HCPCS: 71260; 74177; Q9967

== ENCOUNTER 2022-05-24 08:23 | Outpatient (CLI) | payer OTHER ==
[2022-05-24] MEDS ORDERED: Iopamidol 370 76% 100 ML VIAL ONE (08:38)
== END 2022-05-24 08:24 | disposition home or self-care (01) ==
LOC: CT 08:23
PROVIDERS: ATTEND Internal Medicine Hematology & Oncology
DX: C18.9 Malignant neoplasm of colon, unspecified (principal); R91.8 Other nonspecific abnormal finding of lung field; D50.0 Iron deficiency anemia secondary to blood loss (chronic)
CPT/HCPCS: 71260; Q9967